=== PATIENT | male | born 1970 | race Caucasian/White ===

== ENCOUNTER 2020-11-26 12:04 | Day surgery (SDC) | payer OTHER ==
[~2020-11-26] VITALS: Ht 182.9 cm; Wt 169.0 kg
[2020-11-26] MEDS ORDERED: BUSPIRONE HCL7.5 MG PO (12:20)
[2020-11-26] MEDS ORDERED: FLUOXETINE HCL20 MG PO (12:20)
[2020-11-26] MEDS ORDERED: BUPROPION XL150 MG PO (12:21)
[2020-11-26] MEDS ORDERED: ONE-DAILY MULT1 EAC1 PO (12:21)
[2020-11-26] MEDS ORDERED: TYLENOL325 MG PO (13:18)
--- NOTE | 2020-11-26 15:26 | NUR ---
11/26/20 1526 Faye Martínez 1519 PATIENT ARRIVES TO PACU AWAKE BUT DROWSY. RESP EVEN AND UNLABORED, MASK AT 6 LITERS, TURNED OFF ON ARRIVAL TO PACU. DENIES PAIN OR NAUSEA. PASSING GAS.
--- NOTE | 2020-11-30 16:08 | OR ---
[facility] [address] [place], [place] [address] Signed DATE OF OPERATION: 11/26/2020 SURGEON: Kira Lay MD PREOPERATIVE DIAGNOSES: 1. Colon screening. 2. Morbid obesity (BMI 45.1). 3. History of gastric bypass. POSTOPERATIVE DIAGNOSIS: Multiple polyps of the cecum and right colon. PROCEDURE: Total colonoscopy to cecum with cold morcellation polypectomy x2, hot snare polypectomy x1 and hot snare polypectomy with mucosal lift technique and spot tattoo x1 ANESTHESIA: Intravenous sedation, propofol infusion, Rutsam Ainsley, [employer] INDICATIONS: This morbidly obese 50-year-old white man has undergone bariatric surgery and now is 45.4 BMI. He is here for colon screening, having no symptoms of bleeding, diarrhea, or constipation. He has no family history of colon cancer. Gastric bypass operation was performed in 2012 at his heaviest is 430 pounds, currently 335 pounds, previously as low as 250 pounds. He is admitted to undergo colonoscopy for screening. He understands the risk of bleeding, infection, and perforation. FINDINGS: The prep was good. Complete colonoscopy was undertaken to the cecum without question. He had four polyps between the cecum and right colon, one of them larger at least 1.5 cm in size with a somewhat amorphous appearance. Mucosal lift technique was used for excision of one of the polyps, cold morcellation for another and hot snare alone for another. The remaining colon was essentially normal. DESCRIPTION OF PROCEDURE: The patient was brought to the endoscopy suite and placed in the lateral decubitus position, given intravenous sedation with propofol infusional technique based on his significant BMI and other risk factors. Digital rectal examination was normal. An Olympus video colonoscope was passed in the rectum and manipulated throughout the Electronically Signed By: KIRA LAY MD 11/30/20 1608 PATIENT NAME: KIRA PIERRE OPERATIVE REPORT DATE OF : 66 REPORT #: [id number] PHYSICIAN: KIRA LAY MD PCP: LATASHA LAM PAC REPORT IS CONFIDENTIAL AND NOT TO BE RELEASED WITHOUT AUTHORIZATION [facility] [address] [place], [place] [address] Signed colon ultimately intubating the cecum itself. The ileocecal valve and appendiceal orifice were normal. The scope was withdrawn a bit and the cecum was a sessile polyp. It was excised with cold morcellation technique. The scope was withdrawn further and another similar such polyp was noted in the proximal ascending colon. It too was excised with cold morcellation technique. Further withdrawal showed a more pedunculated appearing polyp, a bit larger. Using mucosal lift technique with spot dye and a sclerotherapy needle, was performed and excision undertaken with hot snare. The specimen was able to be grasped and delivered through the operating channel of the scope. Further withdrawal showed a more bulky polyp just behind the fold. With various manipulations, a snare could be position to allow for excision. This required two areas of excision for complete removal. Given the bulky size of this polyp, a Mederos Net was passed and the material grasped in it. The scope was then withdrawn with examination throughout showing no sign of other abnormality. The polyp was offloaded. The scope was reintroduced ultimately to the cecum again and careful withdrawal of scope showed no bleeding in any of the biopsied areas or excised areas and no other abnormality downstream. The scope was removed and the patient was taken to the recovery room in good condition. CONCLUDING DIAGNOSIS: Given the operative findings, would recommend repeat colonoscopy in one year, particularly given the bulky polyp of the right colon requiring more than one area of snare excision. MD DEB Hendrickson/RAJL /[id number] cc: EKATERINA Barraza Copies: ~ Electronically Signed By: KIRA LAY MD 11/30/20 1608 PATIENT NAME: KIRA PIERRE OPERATIVE REPORT DATE OF : 66 REPORT #: [id number] PHYSICIAN: KIRA LAY MD PCP: LATASHA LAM PAC REPORT IS CONFIDENTIAL AND NOT TO BE RELEASED WITHOUT AUTHORIZATION
--- NOTE | 2020-12-02 06:11 | PATH ---
[facility] [facility] [address] [place], [place] [address] Signed SPECIMEN(S): A ASCENDING/RIGHT COLON POLYP SPECIMEN(S): B ASCENDING/RIGHT COLON POLYP SPECIMEN(S): C CECUM POLYP SPECIMEN(S): D ASCENDING/RIGHT COLON POLYP SPECIMEN SOURCE: A. ASCENDING/RIGHT COLON POLYP B. ASCENDING/RIGHT COLON POLYP C. CECUM POLYP D. ASCENDING/RIGHT COLON POLYP CLINICAL HISTORY: Preop: Screening colonoscopy. Postop: Multiple polyps. MICROSCOPIC DESCRIPTION: Histologic sections of all submitted blocks are examined by light microscopy. These findings, together with the gross examination, support the pathologic diagnosis. FINAL PATHOLOGIC DIAGNOSIS: A. Colon, ascending/right, polyp, polypectomy: - Fragments of tubular adenoma. - Negative for high-grade dysplasia or malignancy. B. Colon, ascending/right, polyp, polypectomy: - Tubular adenoma. - Negative for high-grade dysplasia or malignancy. C. Colon, cecum, polyp, polypectomy: - Tubular adenoma. - Negative for high-grade dysplasia or malignancy. D. Colon, ascending/right, polyp, polypectomy: - Tubular adenoma. - Negative for high-grade dysplasia or malignancy. NAL:cml:C2NR GROSS DESCRIPTION: Four specimens are received in four containers, labeled "JT." A. The specimen, labeled "JT, #1," and designated on the requisition "ascending colon polyp," is received in formalin and consists of multiple de la torre soft tissue fragments that measure 1.1 x 0.4 x 0.2 cm in greatest dimension. The specimen is entirely submitted in cassette (A1). B. The specimen, labeled "JT, #2," and designated on the requisition "ascending colon polyp," is received in formalin and consists of four de la torre soft PATIENT NAME: KIRA PIERRE PATHOLOGY DATE OF : 66 REPORT #: [id number] PHYSICIAN: [place] [facility] PCP: LATASHA LAM PAC REPORT IS CONFIDENTIAL AND NOT TO BE RELEASED WITHOUT AUTHORIZATION [facility] [address] [place], [place] [address] Signed tissue fragments that measure 0.2-0.3 cm in greatest dimension. The specimen is entirely submitted in cassette (B1). C. The specimen, labeled "JT, #3," and designated on the requisition "cecum polyp," is received in formalin and consists of one polypoid de la torre soft tissue fragment that measures 1.0 cm in greatest dimension. The specimen is inked black, trisected, and entirely submitted in cassette (C1). D. The specimen, labeled "JT, #4," and designated on the requisition "ascending colon polyp," is received in formalin and consists of one polypoid de la torre soft tissue fragment that measures 1.2 cm in greatest dimension. The specimen is inked black, quadrisected and entirely submitted in cassette (D1). Tissue friable upon sectioning. AT (under the direct supervision of a pathologist) The Gross Description was prepared using a voice recognition system. The report was reviewed for accuracy; however, sound-alike word errors, addition and/or deletions may occur. If there is any question about this report, please contact Client Services. PERFORMING LABORATORY: The technical component was performed by [facility], [address] [place] [id number] (Waiter/Waitress Informal: Aye Reaves MD; CLIA# [id number]). Professional interpretation was performed by [facility], [facility], [address] [address] (CLIA# [id number]). Diagnostician: Brook Ponce MD Pathologist Electronically Signed 11/30/2020 Copies: ~ PATIENT NAME: KIRA PIERRE PATHOLOGY DATE OF : 66 REPORT #: [id number] PHYSICIAN: [place] BABIN PCP: LATASHA LAM PAC REPORT IS CONFIDENTIAL AND NOT TO BE RELEASED WITHOUT AUTHORIZATION
== END 2020-11-26 15:50 | disposition home or self-care (01) ==
LOC: OPS 12:04 → DS 12:04 → OPS 13:00
PROVIDERS: ATTEND Surgery
PROC: 0DBK8ZX Excision of Ascending Colon, Via Natural or Artificial Opening Endoscopic, Diagnostic (ICD-10-PCS; 2020-11-26)
PROC: 3E0H8GC Introduction of Other Therapeutic Substance into Lower GI, Via Natural or Artificial Opening Endoscopic (ICD-10-PCS; 2020-11-26)
PROC: 0DBH8ZX Excision of Cecum, Via Natural or Artificial Opening Endoscopic, Diagnostic (ICD-10-PCS; principal; 2020-11-26 13:00)
DX: Z12.11 Encounter for screening for malignant neoplasm of colon (principal); D12.2 Benign neoplasm of ascending colon; D12.0 Benign neoplasm of cecum; E66.01 Morbid (severe) obesity due to excess calories; Z68.42 Body mass index [BMI] 45.0-49.9, adult; Z98.84 Bariatric surgery status
CPT/HCPCS: J2704; J7121

== ENCOUNTER 2025-03-12 06:56 | Day surgery (SDC) | payer OTHER ==
[~2025-03-12] VITALS: Ht 182.9 cm; Wt 113.0 kg
[~2025-03-12 06:56] MED LIST: BUPROPION XL150 MG PO; BUSPIRONE HCL7.5 MG PO; FISH OIL 1,0001 EAC5 PO; GLUCOSAMINE &1 EACH PO; LACTATED RINGER'S 1,000 ML IV SCH; ONE-DAILY MULT1 EAC1 PO; PROSTATE HEALT1 EAC1 PO; PROTONIX40 MG PO; PROZAC10 MG PO; TESTONE CI200 MG/1 M IM; TURMERIC500 M2 PO; TYLENOL325 MG PO; VAZALORE81 MG PO; VIAGRA25 MG PO; VITAMIN D3125 MC1 PO
[2025-03-12] MEDS ORDERED: IBLOOD GLUCOSE TEST STRIP 1 EA TEST VI PRN (07:00)
[2025-03-12] MEDS ORDERED: LIDOCAINE HCL 1% 5 ML SDV INJ ONE (07:00)
[2025-03-12 07:12] VITALS: BP 115/69
[2025-03-12] MEDS ORDERED: LIDOCAINE HCL 2% 5 ML SDV ONE (08:32)
[2025-03-12] MEDS ORDERED: fentaNYL citrate 100 MCG/2 ML VIAL ONE (08:32)
[2025-03-12] MEDS ORDERED: SODIUM CHLORIDE 0.9% 20 ML IV ONE (08:32)
--- NOTE | 2025-03-12 09:24 | NUR ---
03/12/25 0924 Anastasiia Jackson 0919-PATIENT ARRIVED TO PACU ON 6L MASK RR EVEN NONAROUSABLE ORAL AIRWAY IN PLACE. ABDOMEN SOFT IVF INFUSING. SR HR 60'S. 0920-FAY LINING FELLER REMOVED ORAL AIRWAY. 6L MASK RR EVEN 100%
[2025-03-12 09:51] VITALS: BP 112/83
== END 2025-03-12 09:55 | disposition home or self-care (01) ==
LOC: DS 06:56
PROVIDERS: ATTEND Surgery
PROC: 0DBH8ZX Excision of Cecum, Via Natural or Artificial Opening Endoscopic, Diagnostic (ICD-10-PCS; principal; 2025-03-12 08:10)
DX: Z12.11 Encounter for screening for malignant neoplasm of colon (principal); D12.0 Benign neoplasm of cecum; Z86.0101 Personal history of adenomatous and serrated colon polyps; Z98.84 Bariatric surgery status
CPT/HCPCS: 00811; 88305; J2003; J2704; J3010; J7121